=== PATIENT | male | born 1975 | race Asian ===

== ENCOUNTER 2017-04-19 22:33 | Emergency (ER) | payer OTHER ==
[2017-04-19 22:57] VITALS: BP 121/74; PULSE 74; RESP 16; TEMP 97.9; O2SAT 96
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
[2017-04-21 02:16] LABS: HEPATITIS C ANTIBODY TOTAL NEGATIVE (NEGATIVE); HIV TYPE 1 AND 2 NEGATIVE (NEGATIVE)
== END 2017-04-19 23:00 | disposition home or self-care (01) ==
DX: Z77.21 Contact with and (suspected) exposure to potentially hazardous body fluids (principal)
CPT/HCPCS: G0472

== ENCOUNTER 2017-11-20 23:13 | Emergency (ER) | payer OTHER ==
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
[2017-11-21 00:07] VITALS: BP 134/102
== END 2017-11-21 00:06 | disposition home or self-care (01) ==
DX: S63.641A Sprain of metacarpophalangeal joint of right thumb, initial encounter (principal); W51.XXXA Accidental striking against or bumped into by another person, initial encounter; Y92.239 Unspecified place in hospital as the place of occurrence of the external cause; Y99.0 Civilian activity done for income or pay
CPT/HCPCS: L3807